=== PATIENT | male | born 1990 | race African-American/Black ===

== ENCOUNTER 2025-04-16 16:27 | Emergency (ER) | payer OTHER, SELFPAY ==
--- NOTE | ~2025-04-16 | XR_ITS ---
CLINICAL HISTORY: trauma 2 views soft tissue neck Comparison: None Findings No acute fractures or dislocation. Normal epiglottis. No prevertebral soft tissue swelling. No radiopaque foreign body. IMPRESSION: No acute findings This document has been electronically signed by: Samira Moe MD on 04/16/2025 18:08:59
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
[2025-04-16 16:34] VITALS: BP 150/90; PULSE 89; O2SAT 98
[2025-04-16 16:40] VITALS: BP 146/69; PULSE 84; RESP 16; TEMP 36.4; O2SAT 98; BMI 32.3
[2025-04-16] MEDS: Acetaminophen 325 MG TABLET 975 MG PO (17:05)
--- OUTSIDE RECORDS SUMMARY | 2025-04-16 17:27 | XMS_ITS | Clinical Summary ---
Author Organization 175 [facility] Address [address] [place] [address] Phone Care Team Providers Care Hand Coper Name Role Phone Jay Bennett MD Primary Care Provider Allergies No known active allergies Medications psyllium (METAMUCIL) 0.52 gram capsule Take 1 Capsule by mouth daily as needed (costipation ) for up to 360 days. 07/21/20 24 025 Active polyethylene glycol (MIRALAX) 17 gram packet Take 1 Packet by mouth daily as needed for Constipation . 07/21/20 24 Active clotrimazole (LOTRIMIN) 1 % cream Apply 2 times/day for 2 weeks 07/21/20 24 025 Active escitalopram (LEXAPRO) 10 mg tablet Take 1 tablet (10 mg total) by mouth 1 (one) time each day with breakfast. 30 each 5 11/12/19 25 025 Active pantoprazole (PROTONIX) 40 mg EC tablet TAKE 1 TABLET BY MOUTH DAILY FOR 180 DAYS. 30 MIN BEFORE BREAK FAST 90 tablet 1 01/18/20 25 Active cholecalciferol (Vitamin D3) 50 mcg (2,000 unit) tablet Take 1 tablet (2,000 Units total) by mouth 1 (one) time each day. 90 tablet 1 02/12/20 25 025 Active SUMAtriptan (IMITREX) 25 mg tabletIndicatio ns:Other migraine with status migrainosus, intractable Take 1 tablet (25 mg total) by mouth 1 (one) time if needed for migraine. May repeat dose once in 2 hours if no relief. Do not exceed 2 doses in 24 hours. 27 tablet 3 03/17/20 25 026 Active melatonin 5 mg capsuleIndicati ons:Insomnia, unspecified type Take 1 capsule by mouth at bedtime as needed (insomnia). 30 each 03/17/20 25 Active hydrocortisone (ANUSOL-HC) 2.5 % rectal creamIndication s:Rectal itching Insert into the rectum 2 (two) times a day. 60 g 2 03/17/20 25 026 Active benzoyl peroxide (BENZAC AC) 10 % external washIndications :Acne, unspecified acne type APPLY TO AFFECTED AREA TWICE A DAY 142 mL 03/18/20 25 Active benzoyl peroxide (BENZAC AC) 10 % external washIndications :Acne, unspecified acne type APPLY TO AFFECTED AREA TWICE A DAY 90 g 12 03/17/20 25 025 Discontinued Active Problems Problem Noted Date Diagnosed Date Heart palpitations 11/17/2024 Assessment & Plan (01/12/2025 3:30 PM EDT): Reports that palpitations have significantly improved with stress management. We reviewed the results of his echocardiogram and cardiac rehab nurse. Echocardiogram results were normal and cardiac rehab nurse did not reveal any concerning findings. I have reviewed with the patient the importance of a heart healthy lifestyle which includes eating a low-fat low-salt diet, getting regular exercise, maintaining a healthy weight, not smoking, and following up with routine medical care. Assessment & Plan (11/17/2024 4:00 PM EST): Patient has minimal caffeine intake does not use any energy or sports drinks does not use any caffeinated based stimulants. Patient does not smoke does not drink alcohol. Palpitations are definitely correlated with his life stress. Will obtain a Holter monitor for 48 hours and a echocardiogram. Orders: Ambulatory referral to Cardiology Transthoracic echocardiogram (TTE) complete with PRN contrast, bubble, strain, and 3D order panel; Future perflutren lipid microsphere (DEFINITY) 1.3 mL in sodium chloride 0.9% 8.7 mL injection Cardiac holter monitor (<= 48 hours); Future Chronic tension headache 11/17/2024 Assessment & Plan (11/17/2024 4:00 PM EST): Suspect that the patient's headaches are tension headaches unfortunately I do not have any cardiac conduction to his headaches. CT scan of the head was performed. No findings. Headaches do not seem to be consistent with temporal arteritis or polymyalgia rheumatica. Though patient does admit to poor sleep habits Hyperlipidemia 11/17/2024 Assessment & Plan (01/12/2025 3:30 PM EDT): Patient is following a low-fat diet in efforts to improve his cholesterol. He will continue to follow with his primary care provider Assessment & Plan (11/17/2024 4:00 PM EST): Lipids are elevated uncertain as to whether this was a fasting lipid profile. Patient encouraged to follow a low-fat diet Gastroesophageal reflux disease 07/21/2024 Hemorrhoids 07/21/2024 Encounters Date Type Department Care Team Description 03/17/2025 8:30 AM EDT Office Visit Internal Medicine - [address] [phone] Evert Dailey NP Other migraine with status migrainosus, intractable (Primary Dx); Erectile dysfunction, unspecified erectile dysfunction type; Acne, unspecified acne type; Insomnia, unspecified type; Rectal itching 02/11/2025 8:00 AM EDT Office Visit Internal Medicine [address] [phone] Jay Bennett MD Encounter for annual physical exam (Primary Dx); Hemorrhoids, unspecified hemorrhoid type; Mixed hyperlipidemia; Chronic tension-type headache, not intractable; Gastroesophageal reflux disease, unspecified whether esophagitis present; Constipation, unspecified constipation type; Encounter for lipid screening for cardiovascular disease; Other abnormal glucose; Vitamin D deficiency; Other fatigue; Skin rash from Last 3 Months Immunizations Name Administration Dates Next Due Tdap Tetanus diptheria acell ular pertussis (Boostrix; Adacel) 7yo and older 02/11/2025 Surgical History Surgery Date Site/Laterality Comments OTHER SURGICAL HISTORY 2011 N/A PROCEDURE: HISTORY OTHER; COMMENT: ? hemorroidectomy at [facility] Medical History Medical History Date Comments GERD (gastroesophageal reflux disease) DX:GERD (gastroesophageal reflux disease) Gastroesophageal reflux disease 07/21/2024 DX:Gastroesophageal reflux disease Hemorrhoids 07/21/2024 DX:Hemorrhoids Arthralgia Headache Family History Medical History Relation Name Comments CORTEZ disease Brother 1 CORTEZ disease Brother 2 Hypertension Maternal Grandmother Hypertension Mother Relation Name Status Comments Brother 1 Brother 2 Alive Father Maternal Grandfather Maternal Grandmother Mother Alive Paternal Grandfather Paternal Grandmother Social History Tobacco Use Types Packs/Day Years Used Date Smoking Tobacco: Never Smokeless Tobacco: Never Tobacco Cessation:Counseling Given: Not Answered Alcohol Use Standard Drinks/Week Comments Yes 0 (1 standard drink = 0.6 oz pur e alcohol) occasional Housing Instability Answer Date Recorde d Are you worried that in the next 2 months you may not have stable housing? No 11/09/2024 Food Access & Nutrition Answer Date Rec orded Do you have access to a vari ety of food including fruits and vegetables? Yes 11/09/2024 Access to Healthcare Answer Date Record ed Within the last 3 months, ho w many times did you visit the emergency department for your medical care? 1 11/09/2024 Health Literacy Answer Date Recorded How often do you need to hav e someone help you when you read instructions, pamphlets, or other written material from your doctor or pharmacy? Never 11/09/2024 Caregiver: How often do you need to have someone help you when you read instructions, pamphlets, or other written material from your doctor or pharmacy? Not on file 11/09/2024 Financial Risk Answer Date Recorded How hard is it for you to pa y for the very basics like food, housing, medical care, and air conditioning / heating? Hard 11/09/2024 Transportation Answer Date Recorded Has the lack of transportati on kept you from meetings, work, or from getting things needed for daily living? No Has the lack of transportati on kept you from medical appointments or from getting medications? No 11/09/2024 Social Isolation Answer Date Recorded How often do you feel lonely or isolated from th ose around you? Often 11/09/2024 Food Risk Answer Date Recorded Within the past 12 months we worried whether our food would run out before we got money to buy more. Never true 11/09/2024 Within the past 12 months th e food we bought just didn't last and we didn't have money to get more. Never true 11/09/2024 Dependent Care Answer Date Recorded Do you need help finding or paying for care for your loved ones. For example, child care assistant or elderly care for an older adult? No 11/09/2024 Education Answer Date Recorded Do you think completing more education or training, like finishing a GED, going to college, or learning a trade, would be helpful for you? Yes 11/09/2024 Employment and Income Answer Date Recor ded During the last four weeks, have you been actively looking for work? No 11/09/2024 Living Situation Answer Date Recorded What is your living situation? 0 11/09/2024 Sex and Gender Information Value Date Recorded Sex Assigned at Male 10/26/2024 12:41 AM EST Legal Sex Male 11:04 AM EDT Gender Identity Male 10/26/2024 12:41 AM EST Sexual Orientation Straight 10/26/2024 12 :41 AM EST Obstetrics History Last Filed Vital Signs Vital Sign Reading Time Taken Comments Blood Pressure 148/86 03/17/2025 8:34 AM EDT Pulse 75 03/17/2025 8:34 AM EDT Temperature 36.6 ??C (97.8 ??F) 03/17/2025 8:34 AM ED T Respiratory Rate - - Oxygen Saturation 97% 03/17/2025 8:34 AM EDT Inhaled Oxygen Concentration - - Weight 80 kg (176 lb 6.4 oz) 03/17/2025 8:34 AM EDT Height 170.2 cm (5' 7 ) 03/17/2025 8:34 AM EDT Body Mass Index 27.63 03/17/2025 8:34 AM EDT Plan of Treatment Upcoming Encounters Date Type Department Care Team (Late st Contact Info) Description 02/17/2026 8:30 AM EDT Office Visit Internal Medicine - [address] [place] [phone] Jay Bennett MD [address] [place] [address] Health Maintenance Due Date Last Done Comments Hepatitis B Vaccines (1 of 3 - 19+ 3-dose series) 2010 COVID-19 Vaccine (1 - 2023-2 5 season) 2024 Influenza Vaccine (Season Ended) 2025 Depression Screening 11/09/2025 11/09/2024, 11/28/2023 Social Influencers of Health Screening 11/09/2025 11/09/2024 Cholesterol Screening (Lipid Panel) 02/11/2030 02/11/2025, 11/28/2023 DTaP,Tdap,and Td Vaccines (2 - Td or Tdap) 02/11/2035 02/11/2025 HIV Screening Completed 11/28/2023, 10/31/2021 Hepatitis C Screening Completed 11/28/2023 , 10/31/2021 HIB Vaccines Aged Out No longer eligi ble based on patient's age to complete this topic HPV Vaccines Aged Out No longer eligi ble based on patient's age to complete this topic Hepatitis A Vaccines Aged Out No long er eligible based on patient's age to complete this topic IPV Vaccines Aged Out No longer eligi ble based on patient's age to complete this topic MMR Vaccines Aged Out No longer eligi ble based on patient's age to complete this topic Meningococcal ACWY Vaccine Aged Out N o longer eligible based on patient's age to complete this topic Meningococcal B Vaccine Aged Out No l onger eligible based on patient's age to complete this topic Pneumococcal Vaccine: Pediatrics (0 to 5 Years) and At-Risk Patients (6 to 64 Years) Aged Out No longer eligible b ased on patient's age to complete this topic RSV Immunization Patients Under 20 months Aged Out No longer eligible b ased on patient's age to complete this topic Varicella Vaccines Aged Out No longer eligible based on patient's age to complete this topic Procedures Procedure Name Priority Date/Time Associated Diagnosis Comments CBC WITH AUTO DIFFERENTIAL Routine 02/11/2025 9:06 AM EDT Encounter for annual physical exam Other fatigue HEMOGLOBIN A1C Routine 02/11/2025 9:06 AM EDT Encounter for annual physical exam Other abnormal glucose VITAMIN D 25 HYDROXY Routine 02/11/2025 9:06 AM EDT Encounter for annual physical exam Vitamin D deficiency THYROID STIMULATING HORMONE WITH REFLEX TO FREE T4 AND FREE T3 Routine 02/11/2025 9:06 AM EDT Encounter for annual physical exam Other fatigue VITAMIN B12 Routine 02/11/2025 9:06 AM EDT Encounter for annual physical exam Other fatigue COMPREHENSIVE METABOLIC PANEL Routine 02/11/2025 9:06 AM EDT Encounter for annual physical exam CBC AND DIFFERENTIAL Routine 02/11/2025 9:06 AM EDT Encounter for annual physical exam Other fatigue LIPID PANEL WITH REFLEX TO DIRECT LDL Routine 02/11/2025 9:06 AM EDT Encounter for annual physical exam Mixed hyperlipidemia HEPATITIS C SCREENING Routine 11/28/2023 HIV SCREENING Routine 11/28/2023 DEPRESSION SCREENING Routine 11/28/2023 from Last 3 Months or Most Recently Relevant to Health Maintenance Results * Thyroid stimulating hormone with reflex to free t4 and free t3 (02/11/2025 9:06 AM EDT) TSH 1.31 0.40 - 4.00 mcIU/mL LAB CHEMISTRY METHOD 02/11/2025 1:56 PM EDT [facility] Blood Venous blood specimen / Unknown Venipuncture / Unknown 02/11/2025 9:06 AM EDT 02/11/2025 10:48 AM EDT us Jay Bennett MD LAB BLOOD ORDERABLES Final Resul t [facility] [address] [place] [address], [place] [phone] * (ABNORMAL) Lipid panel with reflex to direct LDL (02/11/2025 9:06 AM EDT) Cholesterol 192 0 - 200 mg/dL LAB CHEMISTRY METHOD 02/11/2025 12:01 PM EDT [facility] Triglycerides 98 0 - 150 mg/dL LAB CHEMISTRY METHOD 02/11/2025 12:01 PM EDT [facility] HDL 60 >=40 mg/dL LAB CHEMISTRY METHOD 02/11/2025 12:01 PM EDT [facility] LDL Calculated 112(H) 0 - 100 mg/dL LAB CHEMISTRY METHOD 02/11/2025 12:01 PM EDT [facility] VLDL Cholesterol Jaycob 19.6 mg/dL LAB CHEMISTRY METHOD 02/11/2025 12:01 PM EDT [facility] Non HDL Chol. (LDL+VLDL) 132 <145 mg/dL LAB CHEMISTRY METHOD 02/11/2025 12:01 PM EDT [facility] Chol/HDL Ratio 3.2 0.0 - 4.4 LAB CHEMISTRY METHOD 02/11/2025 12:01 PM [facility] Blood Venous blood specimen / Unknown Venipuncture / Unknown 02/11/2025 9:06 AM EDT 02/11/2025 10:48 AM EDT us Jay Bennett MD LAB BLOOD ORDERABLES Final Resul t [facility] [address] [place] [address], [place] [phone] * (ABNORMAL) CBC auto differential (02/11/2025 9:06 AM EDT) WBC 4.4(L) 4.8 - 10.8 K/mcL LAB HEMETOLOGY METHOD 02/11/2025 11:02 AM [facility] RBC 5.40 4.50 - 5.50 M/mcL LAB HEMETOLOGY METHOD 02/11/2025 11:02 AM [facility] Hemoglobin 15.0 13.5 - 17.5 g/dL LAB HEMETOLOGY METHOD 02/11/2025 11:02 AM [facility] Hematocrit 44.7 42.0 - 54.0 % LAB HEMETOLOGY METHOD 02/11/2025 11:02 AM [facility] MCV 83.6 79.0 - 98.0 FL LAB HEMETOLOGY METHOD 02/11/2025 11:02 AM [facility] MCH 28.0 27.0 - 32.0 pcg LAB HEMETOLOGY METHOD 02/11/2025 11:02 AM [facility] MCHC 33.6 32.0 - 37.0 g/dL LAB HEMETOLOGY METHOD 02/11/2025 11:02 AM [facility] RDW 12.3 11.0 - 15.0 % LAB HEMETOLOGY METHOD 02/11/2025 11:02 AM [facility] Platelets 186 130 - 400 K/mcL LAB HEMETOLOGY METHOD 02/11/2025 11:02 AM [facility] MPV 11.2(H) 7.0 - 11.0 FL LAB HEMETOLOGY METHOD 02/11/2025 11:02 AM [facility] NRBC 0.0 <1.0 % LAB HEMETOLOGY METHOD 02/11/2025 11:02 AM [facility] NRBC Absolute 0.00 <0.10 K/mcL LAB HEMETOLOGY METHOD 02/11/2025 11:02 AM [facility] Neutrophils Relative 46.4 % LAB HEMETOLOGY METHOD 02/11/2025 11:02 AM [facility] Lymphocytes Relative 38.1 % LAB HEMETOLOGY METHOD 02/11/2025 11:02 AM [facility] Monocytes Relative 13.1 % LAB HEMETOLOGY METHOD 02/11/2025 11:02 AM [facility] Eosinophils Relative 1.4 % LAB HEMETOLOGY METHOD 02/11/2025 11:02 AM [facility] Basophils Relative 0.5 % LAB HEMETOLOGY METHOD 02/11/2025 11:02 AM [facility] Immature Granulocytes Relative 0.5 % LAB HEMETOLOGY METHOD 02/11/2025 11:02 AM [facility] Neutrophils Absolute 2.03 1.50 - 7.00 K/mcL LAB HEMETOLOGY METHOD 02/11/2025 11:02 AM [facility] Lymphocytes Absolute 1.66 1.00 - 5.00 K/mcL LAB HEMETOLOGY METHOD 02/11/2025 11:02 AM [facility] Monocytes Absolute 0.57 0.20 - 1.00 K/mcL LAB HEMETOLOGY METHOD 02/11/2025 11:02 AM [facility] Eosinophils Absolute 0.06 0.00 - 0.50 K/mcL LAB HEMETOLOGY METHOD 02/11/2025 11:02 AM [facility] Basophils Absolute 0.02 0.00 - 0.20 K/mcL LAB HEMETOLOGY METHOD 02/11/2025 11:02 AM [facility] Immature Granulocytes Absolute 0.02 0.00 - 0.03 K/mcL LAB HEMETOLOGY METHOD 02/11/2025 11:02 AM [facility] Blood Venous blood specimen / Unknown Venipuncture / Unknown 02/11/2025 9:06 AM EDT 02/11/2025 10:52 AM EDT us Jay Bennett MD LAB BLOOD ORDERABLES Final Resul t Performing Organization Address City/[facility]/ZIP Co de Phone Number [facility] [address] [place] [address], [place] [phone] * (ABNORMAL) Vitamin D 25 hydroxy (02/11/2025 9:06 AM EDT) [facility] Vit D, 25-Hydroxy 19.3(L) 30.0 - 80.0 ng/mL LAB CHEMISTRY METHOD 02/11/2025 1:56 PM EDT [facility] Blood Venous blood specimen / Unknown Venipuncture / Unknown 02/11/2025 9:06 AM EDT 02/11/2025 10:48 AM EDT us Jay Bennett MD LAB BLOOD ORDERABLES Final Resul t Performing Organization Address [facility] de Phone Number [facility] [address] [place] [address], [place] [phone] * Hemoglobin A1c (02/11/2025 9:06 AM EDT) [facility] Hemoglobin A1C 5.7 <6.5 % LAB CHEMISTRY METHOD 02/11/2025 9:14 PM EDT [facility] Mean Bld Glu Estim. 117 mg/dL LAB CHEMISTRY METHOD 02/11/2025 9:14 PM EDT [facility] Blood Venous blood specimen / Unknown Venipuncture / Unknown 02/11/2025 9:06 AM EDT 02/11/2025 10:52 AM EDT us Jay Bennett MD LAB BLOOD ORDERABLES Final Resul t Performing Organization Address City/[facility]/ZIP Co de Phone Number [facility] [address] [place] [address], [place] [phone] * Vitamin B12 (02/11/2025 9:06 AM EDT) Pathologist [facility] Vitamin B-12 755 250 - 900 pcg/mL LAB CHEMISTRY METHOD 02/11/2025 12:04 PM [facility] Blood Venous blood specimen / Unknown Venipuncture / Unknown 02/11/2025 9:06 AM EDT 02/11/2025 10:48 AM EDT Jay Bennett MD LAB BLOOD ORDERABLES Final Resul t [facility] [address] [place] [address], * Comprehensive metabolic panel (02/11/2025 9:06 AM EDT) [facility] Sodium 138 133 - 145 mmol/L LAB CHEMISTRY METHOD 02/11/2025 12:02 PM [facility] Potassium 4.0 3.5 - 5.5 mmol/L LAB CHEMISTRY METHOD 02/11/2025 12:02 PM [facility] Chloride 106 96 - 110 mmol/L LAB CHEMISTRY METHOD 02/11/2025 12:02 PM [facility] CO2 26 21 - 32 mmol/L LAB CHEMISTRY METHOD 02/11/2025 12:02 PM [facility] Anion Gap 6 3 - 11 LAB CHEMISTRY METHOD 02/11/2025 12:02 PM [facility] Glucose 82 70 - 100 mg/dL LAB CHEMISTRY METHOD 02/11/2025 12:02 PM [facility] BUN 15 5 - 25 mg/dL LAB CHEMISTRY METHOD 02/11/2025 12:02 PM [facility] Creatinine 1.16 0.70 - 1.30 mg/dL LAB CHEMISTRY METHOD 02/11/2025 12:02 PM [facility] eGFR 85 >=60 mL/min/1. 73m2 LAB CHEMISTRY METHOD 02/11/2025 12:02 PM [facility] Comment:Calculation based on the??Chronic Kidney Disease Epidemiology Collaboration (CKD-EPI) equation refit??without adjustment for race. BUN/Creatinine Ratio 12.9 LAB CHEMISTRY METHOD 02/11/2025 12:02 PM [facility] Calcium 9.4 8.5 - 10.5 mg/dL LAB CHEMISTRY METHOD 02/11/2025 12:02 PM [facility] AST (SGOT) 19 10 - 42 unit/L LAB CHEMISTRY METHOD 02/11/2025 12:02 PM [facility] ALT (SGPT) 24 10 - 60 unit/L LAB CHEMISTRY METHOD 02/11/2025 12:02 PM [facility] Alkaline Phosphatase 61 42 - 121 unit/L LAB CHEMISTRY METHOD 02/11/2025 12:02 PM [facility] Total Protein 7.6 6.0 - 8.0 g/dL LAB CHEMISTRY METHOD 02/11/2025 12:02 PM [facility] Albumin 3.9 3.2 - 5.0 g/dL LAB CHEMISTRY METHOD 02/11/2025 12:02 PM [facility] Total Bilirubin 0.6 0.0 - 1.4 mg/dL LAB CHEMISTRY METHOD 02/11/2025 12:02 PM [facility] Blood Venous blood specimen / Unknown Venipuncture / Unknown 02/11/2025 9:06 AM EDT 02/11/2025 10:48 AM EDT us Jay Bennett MD LAB BLOOD ORDERABLES Final Resul t [facility] [address] [place] [address], * Depression Screening (11/28/2023) [facility] Depression Screening Abstracted Historical Provider HEALTH MAINTENANCE Final Result * HIV Screening (11/28/2023) Pathologist [facility] HIV Screening Abstracted Historical Provider HEALTH MAINTENANCE Final Result * Hepatitis C Screening (11/28/2023) Pathologist [facility] Hepatitis C Screening Abstracted [facility] Provider HEALTH MAINTENANCE Final Result from Last 3 Months or Most Recently Relevant to Health Maintenance Insurance [facility] Care Teams Hand Coper Relationship Specialty Start Date End Date Jay Bennett MD [address] [place] [id number] PCP - General 11/13/23
[2025-04-16 17:56] VITALS: BP 146/69; PULSE 84; RESP 16; TEMP 36.4; O2SAT 98
== END 2025-04-16 17:57 | disposition home or self-care (01) ==
PROVIDERS: Emergency Provider Internal Medicine
DX: M54.2 Cervicalgia (principal); R07.0 Pain in throat; S40.812A Abrasion of left upper arm, initial encounter; Y04.8XXA Assault by other bodily force, initial encounter; Y93.89 Activity, other specified; Y92.008 Other place in unspecified non-institutional (private) residence as the place of occurrence of the external cause; Y99.9 Unspecified external cause status
CPT/HCPCS: 70360; 99283; 99284

== ENCOUNTER → 2025-04-16 16:44 | Outpatient (BNV) | payer OTHER, SELFPAY | PROVIDERS: Emergency Provider Internal Medicine; Visit Provider Specialist | DX: M54.2 Cervicalgia (principal) | CPT/HCPCS: 70360 ==

== ENCOUNTER → 2025-05-18 09:15 | Outpatient (BNVA) | payer SELFPAY | PROVIDERS: Visit Provider Physician Assistant | DX: Z02.79 Encounter for issue of other medical certificate (principal) ==